=== PATIENT | male | born 1950 | race Hispanic/Latino ===

== ENCOUNTER 2017-03-19 11:47 | Day surgery (SDC) | payer MEDICARE ==
[2017-03-17 11:58] VITALS: BMI 26.6
[2017-03-19] MEDS ORDERED: Lidocaine 1% Inj (20ml) ONE (13:09)
[2017-03-19] MEDS ORDERED: Absorbable Gelatin Sponge Size 12-7 ONE (13:10)
[2017-03-19] MEDS ORDERED: Midazolam 2 MG/2 ML VIAL ONE ×2 (13:11→13:18)
--- NOTE | 2017-03-19 13:25 | CP.SDSHP ---
Same Day Surgery H & P - History Proposed Procedure: US guided liver biopsy Pre-Op Diagnosis: Hemachromatosis - Allergies Allergies: Allergies No Known Allergies Allergy (Verified 01/16/16 10:48) - Physical Exam Vital Signs: Vital Signs 03/19/17 03/19/17 03/19/17 12:06 12:08 13:19 Temperature 97.5 F L 98.0 F Pulse Rate 66 69 Respiratory 18 20 18 Rate Blood Pressure 139/75 132/71 O2 Sat by Pulse 97 100 Oximetry Mental Status: Alert & Oriented x3 Neuro: WNL Heart: WNL - Impression Impression: Pt possible fatty liver referred for liver biopsy. Plan US guided liver biopsy. Pt. Evaluated Today:Candidate for Anesthesia & Procedure: Yes (ASA 1 Malampati 2) - Date & Time Date: 03/19/17 Time: 13:00 Short Stay Discharge - Short Stay Discharge Admitting Diagnosis/Reason for Visit: ELEVATED LFT, FATTY LIVER/R94.5/K76.0 Disposition: HOME/ ROUTINE Referrals: Sadi Triana MD [Primary Care Provider] -
--- NOTE | 2017-03-19 13:25 | CP.SDSHP ---
Same Day Surgery H & P - Allergies Allergies: Allergies No Known Allergies Allergy (Verified 01/16/16 10:48) - Physical Exam Vital Signs: Vital Signs 03/19/17 03/19/17 03/19/17 12:06 12:08 13:19 Temperature 97.5 F L 98.0 F Pulse Rate 66 69 Respiratory 18 20 18 Rate Blood Pressure 139/75 132/71 O2 Sat by Pulse 97 100 Oximetry Short Stay Discharge - Short Stay Discharge Admitting Diagnosis/Reason for Visit: ELEVATED LFT, FATTY LIVER/R94.5/K76.0 Referrals: Sadi Triana MD [Primary Care Provider] -
--- NOTE | 2017-03-19 13:27 | PCM.SURG1 ---
Surgeon's Initial Post Op Note - Surgeon's Notes Surgeon: Arturo Mendez MD Roving Marker: None Type of Anesthesia: IV Sedation Pre-Operative Diagnosis: Fatty liver Operative Findings: US showed unremarkable left hepatic lobe. Post-Operative Diagnosis: Fatty liver Operation Performed: US guided left liver biopsy. Three 18-g core specimen obtained. Biopsy tract embolized with gel foam. Specimen/Specimens Removed: 18 g x 3 Estimated Blood Loss: EBL {In ML}: 0 Blood Products Given: N/A Drains Used: No Drains Post-Op Condition: Good Date of Surgery/Procedure: 03/19/17 Time of Surgery/Procedure: 13:20
[2017-03-19] MEDS ORDERED: Lactated Ringer's 1,000 ML IV ONE (14:00)
[2017-03-19 14:05] VITALS: RESP 18
[2017-03-19 15:21] VITALS: BP 128/85; TEMP 97.7; O2SAT 98
[2017-03-20 13:41] VITALS: PULSE 61
== END 2017-03-19 15:29 | disposition home or self-care (01) ==
LOC: H.OPSURG 11:47
PROVIDERS: ATTEND Internal Medicine Gastroenterology
DX: K76.0 Fatty (change of) liver, not elsewhere classified (principal); K21.9 Gastro-esophageal reflux disease without esophagitis
CPT/HCPCS: 47000; 88307; J2250; J3010; J7120

== ENCOUNTER 2017-04-13 12:52 | Inpatient (IN) | payer MEDICARE ==
[2017-04-13 12:53] VITALS: BMI 26.6
[2017-04-13 13:00] VITALS: O2SAT 99
--- NOTE | 2017-04-13 13:58 | ED PDOC ---
HPI: Psych/Substance Abuse Time Seen by Provider: 04/13/17 13:07 Chief Complaint (Nursing): Psychiatric Evaluation Chief Complaint (Provider): Crisis eval History Per: Patient Additional Complaint(s): [place] [facility] [place] pt physician, pt c/o suicidal ideations with plan to cut wrist with scalpel. Pt does not want to answer any further questions and is praying. Pt denies any PMH or Allergies ot medications Past Medical History Reviewed: Historical Data, Nursing Documentation, Vital Signs, Unable To Obtain Vital Signs: Last Vital Signs Temp 98.1 F 04/13/17 12:57 Pulse 90 04/13/17 12:57 Resp 16 04/13/17 12:57 BP 194/109 H 04/13/17 12:57 Pulse Ox 99 04/13/17 12:57 - Medical History PMH: Back Problems, Gastritis Denies: Chronic Kidney Disease - Surgical History Surgical History: No Surg Hx - Family History Family History: States: Unknown Family Hx - Immunization History Hx Tetanus Toxoid Vaccination: No Hx Influenza Vaccination: No Hx Pneumococcal Vaccination: No - Home Medications Home Medications: Ambulatory Orders Medication Instructions Recorded traMADol [Ultram] 50 mg PO TID PRN 01/16/16 Atorvastatin [Lipitor] 20 mg PO HS 04/13/17 Loratadine [Claritin] 10 mg PO DAILY 04/13/17 - Allergies Allergies/Adverse Reactions: Allergies Allergy/AdvReac Type Severity Reaction Status Date / Time No Known Allergies Allergy Verified 01/16/16 10:48 Review of Systems ROS Statement: Except As Marked, All Systems Reviewed And Found Negative Physical Exam - Reviewed Nursing Documentation Reviewed: Yes Vital Signs Reviewed: Yes - Physical Exam Appears: Positive for: Well, Non-toxic, No Acute Distress Head Exam: Positive for: ATRAUMATIC, NORMAL INSPECTION, NORMOCEPHALIC Skin: Positive for: Normal Color, Warm, DRY Eye Exam: Positive for: EOMI, Normal appearance, PERRL ENT: Positive for: Normal ENT Inspection Neck: Positive for: Normal, Painless ROM Cardiovascular/Chest: Positive for: Regular Rate, Rhythm Respiratory: Positive for: CNT, Normal Breath Sounds Gastrointestinal/Abdominal: Positive for: Normal Exam, Bowel Sounds, Soft Back: Positive for: Normal Inspection Extremity: Positive for: Normal ROM Neurologic/Psych: Positive for: Alert, Oriented - Laboratory Results Result Diagrams: 04/13/17 14:30 04/13/17 14:30 - ECG O2 Sat by Pulse Oximetry: 99 Medical Decision Making Medical Decision Making: Diagnostics ordered EKG interpreted and cleared by ED MD NSR at 72 bpm, no acute ST changes, as read by IVA CXR: NAD, as read by IVA Labs resulted and reviewed with Pt. Neelam 5.3, Miguel Marks ordered Pt medically cleared, underwent crisis eval. See notes. Stable for admission to [facility] repeat BP: 158/88 Disposition - Clinical Impression Clinical Impression: Schizophrenia - Patient ED Disposition Is Patient to be Admitted: Yes - Disposition Disposition Time: 19:31 Condition: STABLE Forms: [facility] ([place]) - POA Present On Arrival: None
[2017-04-13 14:40] LABS: BASO % 0.5 % (0.0-2.0); EOS % 0.4 % (0.0-4.0); HEMATOCRIT 47.8 % (35.0-51.0); LYMPH # 1.8 K/uL (1.0-4.3); LYMPH % 18.3 % (20.0-40.0); MEAN CELL VOLUME 93.3 fl (80.0-94.0); MEAN CORPUSCULAR HEMOGLOBIN 31.9 pg (27.0-31.0); MEAN CORPUSCULAR HGB CONC 34.2 g/dL (33.0-37.0); MEAN PLATELET VOLUME 8.1 fl (7.2-11.7); MONO # 0.8 K/uL (0.0-0.8); MONO % 8.3 % (0.0-10.0); NEUT # 7.2 K/uL (1.8-7.0); NEUT % 72.5 % (50.0-75.0); RED CELL DISTRIBUTION WIDTH 13.3 % (11.5-14.5); WHITE BLOOD COUNT 9.9 K/uL (4.8-10.8)
[2017-04-13 14:51] LABS: ALB/GLOB RATIO 1.5 (1.0-2.1); ALCOHOL SERUM < 10 mg/dl (0-10); ALKALINE PHOSPHATASE 82 U/L (38-126); ALT/SGPT 77 U/L (21-72); AST/SGOT 74 U/L (17-59); BILIRUBIN,TOTAL 1.7 mg/dl (0.2-1.3); BLOOD UREA NITROGEN 14 mg/dl (9-20); CALCIUM 9.5 mg/dL (8.4-10.2); CARBON DIOXIDE 21 mmol/L (22-30); CHLORIDE 103 mmol/L (98-107); GFR AFRICAN-AMERICAN > 60; GLUCOSE,RANDOM 108 mg/dL (75-110); SODIUM 141 mmol/l (132-148)
[2017-04-13 14:58] LABS: POTASSIUM 3.2 MMOL/L (3.6-5.0)
--- NOTE | 2017-04-13 15:36 | RAD ---
PROCEDURE: CHEST RADIOGRAPH, 1 VIEW HISTORY: med screening COMPARISON: None available. FINDINGS: LUNGS: Clear. PLEURA: No pneumothorax or pleural fluid seen. CARDIOVASCULAR: No radiographic findings to suggest acute or significant cardiovascular disease. OSSEOUS STRUCTURES: No significant abnormalities. VISUALIZED UPPER ABDOMEN: Normal. OTHER FINDINGS: None. IMPRESSION: No active disease.
[2017-04-13] MEDS ORDERED: Potassium Chloride 20 mEq ER Tab PO ONE ×3 (16:44→20:10)
[2017-04-13 17:19] LABS: RBC URINE 4 /hpf (0-3); URINE BILIRUBIN NEGATIVE (NEGATIVE); URINE BLOOD NEGATIVE (NEGATIVE); URINE COLOR AMBER (YELLOW); URINE GLUCOSE (UA) NEG (Normal); URINE KETONE 80 mg/dL (NEGATIVE); URINE LEUKOCYTE ESTERASE NEG Leu/uL (Negative); URINE PROTEIN 100 mg/dL (NEGATIVE); URINE UROBILINOGEN 0.2-1.0 mg/dL (0.2-1.0); WBC URINE 4 /hpf (0-5)
[2017-04-13] MEDS ORDERED: Magnesium Hydroxide Susp 30 ml UD PO PRN (20:34)
[2017-04-13] MEDS ORDERED: Alum-Mag Hydrox-Simethicone Susp (30 mL) PO PRN (20:34)
[2017-04-13] MEDS ORDERED: DiphenhydrAMINE 50 mg/ml Inj IM PRN (20:34)
--- NOTE | 2017-04-13 21:14 | PCM.BM ---
<TenishaMadhutoya Peñaloza - Last Filed: 04/13/17 21:12> Treatment Plan Problems - Problems identified on initial assessmt Delusions Date Initiated: 04/13/17 Time Initiated: 21:13 Assessment reference: NA Status: Active Thought process Date Initiated: 04/13/17 Time Initiated: 21:14 Assessment reference: NA Status: Active Ineffective coping Date Initiated: 04/13/17 Time Initiated: 21:14 Assessment reference: NA Status: Active Treatment assets and liabiliti Patient Assests: ADL independent, negotiates basic needs Patient Liabilities: medical problems, unable to read/write, language/speech - Milieu Protocol Maintain good personal hygiene: daily Remind patient to perform daily oral care , daily Assist patient to perform ADL's, every shift Encourage regular showers Maintain personal safety: daily Educate patient to report safety concerns to staff, every shift Monitor environment for contraband/sharps Medication safety: Monitor for expected outcome, potential side effects: daily, Assess barriers to learning: daily, Assess readiness for medication education: every shift <John Anthony - Last Filed: 04/15/17 10:02> Family Contact Family contact: Patient agrees to contact, Family has been contacted by patient , Telephone contact initiated by staff Family contact name: Ángel Das ([phone]) Brother Family contacted how many times per week?: 6 Family contact comment: Asset Administrator and pt's son spoke briefly, but son seemed to not understand the severity of pt's current condition. Pt lacks any insight into his current condition and this was imparted to son. - Outside Agency Agency 1 Care involvment: Following patient during stay Agency contact name: [facility] ([phone]) Agency contact number: Pt was screened by [facility] [place] committ[place] and accepted. Pt is pending transfer after additional medical tests are conducted. - Goals for Treatment Patient goals for treatment: None noted as pt does not think he needs to be hospitalized in a psychiatric unit. Discharge/Continuing Care - Discharge Discharge Criteria: Other Discharge to:: Other - Additional Comments 04/15/17 10:01 Pt was screened and accepted to [facility] [place] and is awaiting transport to their psychiatric ED once additional medical tests are conducted and pt is medically cleared for transport by [facility] staff. - Treatment Team Participation Discussed with Family/SO: Yes Was Patient/Family/SO present at Treatment Team Meeting: Yes
--- NOTE | 2017-04-14 08:50 | CARD ---
APPROVED REPORT EKG Measurement Heart [id number] <Conclusion> Normal sinus rhythm Nonspecific ST abnormality Abnormal ECG
--- NOTE | 2017-04-14 10:26 | PCM.PSYCH ---
Initial Psychiatric Evaluation - Initial Psychiatric Evaluation Type of Admission: Voluntary Legal Status: Capacity Chief Complaint (in patient's own words): i want to know why i am here Patient's Reaction to Hospitalization: signed 48 hour notice History of Present Illness and Precipitating Events: 66 yo cymro male who is denying any previous psychiatric history. pt's son apparently called mobile outreach as he was concerned with the patient's recent behaviors. apparently pt has been working on a new book and has become quite bizarre and has been making vague suicidal statements. pt has become paranoid and there are reports that patient was reporting hearing voices. he is a poor historian currently. he is intrusive and continues to ask this advertising copywriter and staff for personal information and is yelling that "a mistake was made" and demanding to be discharged immediately. pt becomes loud and agitated. he is able to be verbally redirected by staff. pt speaking to this advertising copywriter in japanese and continues to try and ask questions about this writers ancestors. he becomes tagential and continues to shift from topic to topic. he insists that his 3 month (at times he says 5 month) old daughter is coming from [place] today. he states his son is getting today. he demands to be discharged and has signed a 48 hour notice. Current Medications: Active Medications Generic Name Dose Route Start Last Admin Trade Name Carmen PRN Reason Stop Dose Admin Acetaminophen 650 mg 04/13/17 20:34 Tylenol 325mg Tab PO Q4 PRN Pain, moderate (4-7) Al Hydrox/Mg Hydrox/Simethicone 30 ml 04/13/17 20:34 Maalox Plus 30 Ml PO Q4 PRN Dyspepsia Atorvastatin Calcium 20 mg 04/13/17 22:00 04/13/17 22:08 Lipitor PO 20 mg HS ANANDA Administration Clonidine HCl 0.2 mg 04/13/17 21:00 04/14/17 08:49 Catapres PO 0.2 mg BID ANANDA Administration Diphenhydramine HCl 50 mg 04/13/17 20:34 Benadryl IM Q6 PRN Extrapyramidal S/S Unable PO Diphenhydramine HCl 50 mg 04/13/17 20:39 04/13/17 22:08 Benadryl PO 50 mg HS PRN Administration Sleep Haloperidol 5 mg 04/13/17 20:34 Haldol PO Q4 PRN Agitation Haloperidol Lactate 5 mg 04/13/17 20:34 Haldol IM Q4 PRN Agitation, Unable to Take PO Lorazepam 2 mg 04/13/17 20:34 Ativan IM Q4 PRN Anxiety/Agitation,Unable PO Lorazepam 1 mg 04/13/17 20:34 04/13/17 22:08 Ativan PO 1 mg Q4 PRN Administration Anxiety/Agitation Magnesium Hydroxide 30 ml 04/13/17 20:34 Milk Of Magnesia PO HS PRN Constipation Risperidone 0.5 mg 04/14/17 10:15 Risperdal M-Tab PO DAILY ANANDA Tramadol HCl 50 mg 04/13/17 20:57 Ultram PO TID PRN Pain, severe (8-10) Past Psychiatric History - Past Psychiatric History Previous Treatment History: Inpatient Prior Professional Help: states he was in a sanatorium in [place] in 1970 History of Abuse: poor historian History of ETOH/Drug Use: uds negative. History of Family Illness: unknown Pertinent Medical Hx (Current Medical&Sleep Prob, Allergies): Allergies Allergy/AdvReac Type Severity Reaction Status Date / Time No Known Allergies Allergy Verified 01/16/16 10:48 traMADol [Ultram] 50 mg PO TID PRN 01/16/16 Atorvastatin [Lipitor] 20 mg PO HS 04/13/17 Loratadine [Claritin] 10 mg PO DAILY 04/13/17 seasonal allergies, hypercholesterolemia Review of Systems - Psychiatric Psychiatric: As Per HPI, Auditory Hallucinations, Difficulty Concentrating, Hallucinations, Irritability, Mood Swings, Panic Attacks, Paranoia, Suicidal Ideation Mental Status Examination - Personal Presentation Personal Presentation: Looks stated age - Affect Affect: Broad - Motor Activity Motor Activity: Other (restless refuses to sit down) - Reliability in Providing Information Reliability in Providing Information: Poor, due to alteration in thoughts, Poor , due to altered mood - Speech Speech: Disorganized, Irrelevant, Tangential - Mood Mood: Other (angry) - Formal Thought Process Formal Thought Process: Hallucinations, Delusions, Paranoia, Loosening of associations, Flight of ideas, Circumstantial - Hallucinations/Delusions Delusions: Persecution - Obsessions/Compulsions Obsessions: No Compulsions: No - Cognitive Functions Orientation: Person, Place, Situation, Time Sensorium: Alert Attention/Concentration: Easily distracted Abstract Thinking: As evidence by abstract perception of proverbs Estimate of Intelligence: Above Average Judgement: Imparied, as evidence by: Lack of insight into illness Memory: Recent impaired, as evidenced by: Other (psychosis, karan) - Risk Risk: Suicidal (has made threats per report. he is denying suicidal thoughts), Diminished functioning - Strength & Assets Inventory Strength & Assets Inventory: Intelligence, Family support, Education, Life experience - Limitations Limitations: Living alone DSM 5 DX - DSM 5 DSM 5 Diagnosis: mood disorder unspecified r/o bipolar disorder manic with psychosis - Recommended/Plan of Treatment Treatment Recommendations and Plan of Treatment: admit to [facility] for safety and observation gather collateral information provide supportive therapy adjust medications- attempt to initiate risperdal to treat mood/psychosis- pt is not agreeing to medications at this time. screen for involuntary hospitalization at [facility] [place] as pt is grossly disorganized in his thoughts, behaviors and is making suicidal threats and lacks insight into his illness. will consult dr. souza to manage his medical needs Projected ELOS: 5-7 days Prognosis: guarded without intervention
[2017-04-14] MEDS: Risperidone M tab 0.5MG PO SCH ×3 (12:25→20:11)
--- NOTE | 2017-04-14 15:11 | CP.PCM.CON ---
<Lise Snyder - Last Filed: 04/14/17 15:39> History of Present Illness - History of Present Illness History of Present Illness: 66 y/o M with PMHx significant for HLD, Triple Cervical disc herniation, who was admitted in psychiatric unit for mood disorder unspecified and r/o bipolar disorder manic with psychosis. Patient reports elevated BP " once in a while when he gets emotional with his children". Patient denies chest pain, SOB, cough , fevers, chills, dizziness, headaches, abdominal pain, diarrheas or other complains at this evaluation. PMD: Dr. Triana Medications at home: Lipitor, Claritin, and Tramadol ( PRN) Review of Systems - Review of Systems All systems: reviewed and no additional remarkable complaints except (as per HPI ) Past Patient History - Past Medical History & Family History Past Medical History?: Yes - Past Social History Smoking Status: Never Smoked - CARDIAC Hx Cardiac Disorders: Yes - PULMONARY Hx Respiratory Disorders: No - NEUROLOGICAL Hx Neurological Disorder: No - HEENT Hx HEENT Problems: No - RENAL Hx Chronic Kidney Disease: No - ENDOCRINE/METABOLIC Hx Endocrine Disorders: No - HEMATOLOGICAL/ONCOLOGICAL Hx Blood Disorders: No - INTEGUMENTARY Hx Dermatological Problems: No - MUSCULOSKELETAL/RHEUMATOLOGICAL Hx Musculoskeletal Disorders: No - GASTROINTESTINAL Hx Gastritis: Yes - GENITOURINARY/GYNECOLOGICAL Hx Genitourinary Disorders: No - PSYCHIATRIC Hx Substance Use: No - SURGICAL HISTORY Hx Surgeries: No - ANESTHESIA Hx Anesthesia: No Hx Anesthesia Reactions: No Hx Malignant Hyperthermia: No Meds Allergies/Adverse Reactions: Allergies Allergy/AdvReac Type Severity Reaction Status Date / Time No Known Allergies Allergy Verified 01/16/16 10:48 - Medications Medications: Current Medications Acetaminophen (Tylenol 325mg Tab) 650 mg PO Q4 PRN PRN Reason: Pain, moderate (4-7) Al Hydrox/Mg Hydrox/Simethicone (Maalox Plus 30 Ml) 30 ml PO Q4 PRN PRN Reason: Dyspepsia Amlodipine Besylate (Norvasc) 5 mg PO DAILY [facility] Atorvastatin Calcium (Lipitor) 20 mg PO HS ANANDA Last Admin: 04/13/17 22:08 Dose: 20 mg Clonidine HCl (Catapres) 0.2 mg PO BID ANANDA Last Admin: 04/14/17 08:49 Dose: 0.2 mg Diphenhydramine HCl (Benadryl) 50 mg IM Q6 PRN PRN Reason: Extrapyramidal S/S Unable PO Diphenhydramine HCl (Benadryl) 50 mg PO HS PRN PRN Reason: Sleep Last Admin: 04/13/17 22:08 Dose: 50 mg Haloperidol (Haldol) 5 mg PO Q4 PRN PRN Reason: Agitation Haloperidol Lactate (Haldol) 5 mg IM Q4 PRN PRN Reason: Agitation, Unable to Take PO Lorazepam (Ativan) 2 mg IM Q4 PRN PRN Reason: Anxiety/Agitation,Unable PO Lorazepam (Ativan) 1 mg PO Q4 PRN PRN Reason: Anxiety/Agitation Last Admin: 04/13/17 22:08 Dose: 1 mg Magnesium Hydroxide (Milk Of Magnesia) 30 ml PO HS PRN PRN Reason: Constipation Risperidone (Risperdal M-Tab) 0.5 mg PO DAILY ANANDA Last Admin: 04/14/17 12:25 Dose: 0.5 mg Tramadol HCl (Ultram) 50 mg PO TID PRN PRN Reason: Pain, severe (8-10) Physical Exam - Constitutional Appears: No Acute Distress - ENT Exam ENT Exam: Mucous Membranes Moist - Respiratory Exam Respiratory Exam: NORMAL BREATHING PATTERN - Cardiovascular Exam Cardiovascular Exam: REGULAR RHYTHM, +S1, +S2 - GI/Abdominal Exam GI & Abdominal Exam: Normal Bowel Sounds, Soft. absent: Tenderness - Extremities Exam Extremities exam: Positive for: normal inspection. Negative for: calf tenderness, pedal edema - Neurological Exam Neurological exam: Alert, Oriented x3 - Skin Skin Exam: Dry, Intact, Normal Color Results - Vital Signs Recent Vital Signs: Last Vital Signs Temp 96.9 F L 04/14/17 09:00 Pulse 60 04/14/17 11:35 Resp 18 04/14/17 11:35 BP 169/80 H 04/14/17 11:35 Pulse Ox 99 04/13/17 19:36 - Labs Result Diagrams: 04/13/17 14:30 04/13/17 14:30 Assessment & Plan - Assessment and Plan (Free Text) Assessment: 66 y/o M with PMHx significant for HLD, Triple Cervical disc herniation, who was admitted in psychiatric unit for mood disorder unspecified and r/o bipolar disorder manic with psychosis. Plan: Hypertension Uncontrolled, BP on admission 194/109 mmhg Patient is not taking any BP medications Asymptomatic c/w started Clonidine 0.2 mg PO BID by hospitalist, Dr. Shankar start Amlodipine 5 mg PO GFR >60, BUN/Cr :wnl f/u BP Hypokalemia mild noted on admission K+ 3.2 Potassium 20 meq x 2 given at ER f/u CMP Elevated LFts Asymptomatic consider work up as outpatient HLD c/w home atorvastatin 20 mg PO HS Mood disorder unspecified r/o bipolar disorder manic with psychosis. management as per psych DVT prophylaxis ambulating - Date & Time Date: 04/14/17 Time: 14:00 <Sadi Triana - Last Filed: 04/15/17 06:55> Meds - Medications Medications: Current Medications Acetaminophen (Tylenol 325mg Tab) 650 mg PO Q4 PRN PRN Reason: Pain, moderate (4-7) Al Hydrox/Mg Hydrox/Simethicone (Maalox Plus 30 Ml) 30 ml PO Q4 PRN PRN Reason: Dyspepsia Amlodipine Besylate (Norvasc) 10 mg PO DAILY ANANDA Atorvastatin Calcium (Lipitor) 20 mg PO HS ANANDA Last Admin: 04/14/17 22:00 Dose: Not Given Clonidine HCl (Catapres) 0.2 mg PO BID ANANDA Last Admin: 04/14/17 20:06 Dose: 0.2 mg Diphenhydramine HCl (Benadryl) 50 mg IM Q6 PRN PRN Reason: Extrapyramidal S/S Unable PO Diphenhydramine HCl (Benadryl) 50 mg PO HS PRN PRN Reason: Sleep Last Admin: 04/13/17 22:08 Dose: 50 mg Haloperidol (Haldol) 5 mg PO Q4 PRN PRN Reason: Agitation Haloperidol Lactate (Haldol) 5 mg IM Q4 PRN PRN Reason: Agitation, Unable to Take PO Lorazepam (Ativan) 2 mg IM Q4 PRN PRN Reason: Anxiety/Agitation,Unable PO Lorazepam (Ativan) 1 mg PO Q4 PRN PRN Reason: Anxiety/Agitation Last Admin: 04/14/17 20:14 Dose: 1 mg Magnesium Hydroxide (Milk Of Magnesia) 30 ml PO HS PRN PRN Reason: Constipation Potassium Chloride (K-Dur 20 Meq Er Tab) 40 meq PO ONCE ONE Stop: 04/15/17 09:01 Risperidone (Risperdal M-Tab) 0.5 mg PO DAILY ANANDA Last Admin: 04/14/17 20:11 Dose: 0.5 mg Tramadol HCl (Ultram) 50 mg PO TID PRN PRN Reason: Pain, severe (8-10) Results - Vital Signs Recent Vital Signs: Last Vital Signs Temp 96.9 F L 04/14/17 17:00 Pulse 84 04/14/17 20:07 Resp 18 04/14/17 17:00 BP 186/110 H 04/14/17 20:07 Pulse Ox 99 04/13/17 19:36 - Labs Result Diagrams: 04/13/17 14:30 04/14/17 20:40 Labs: Laboratory Results - last 24 hr 04/14/17 04/14/17 20:40 21:30 Sodium 134 Potassium 3.3 L Chloride 97 L Carbon Dioxide 22 Anion Gap 18 BUN 11 Creatinine 0.6 L Est GFR ( Amer) > 60 Est GFR (Non-Af Amer) > 60 Random Glucose 105 Calcium 9.3 Total Bilirubin 1.9 H AST 74 H ALT 80 H Alkaline Phosphatase 80 Total Protein 7.7 Albumin 4.7 Globulin 3.1 Albumin/Globulin Ratio 1.5 Urine Color Straw Urine Clarity Clear Urine pH 6.0 Ur Specific [place] 1.005 Urine Protein Negative Urine Glucose (UA) Neg Urine Ketones 20 Urine Blood Small Urine Nitrate Negative Urine Bilirubin Negative Urine Urobilinogen 0.2-1.0 Ur Leukocyte Esterase Neg Urine RBC (Auto) 12 H Urine Microscopic WBC 3 Attending/Attestation - Attestation I have personally seen and examined this patient.: Yes I have fully participated in the care of the patient.: Yes I have reviewed all pertinent clinical information: Yes
[2017-04-14 21:35] LABS: ALB/GLOB RATIO 1.5 (1.0-2.1); ALKALINE PHOSPHATASE 80 U/L (38-126); ALT/SGPT 80 U/L (21-72); AST/SGOT 74 U/L (17-59); BILIRUBIN,TOTAL 1.9 mg/dl (0.2-1.3); BLOOD UREA NITROGEN 11 mg/dl (9-20); CALCIUM 9.3 mg/dL (8.4-10.2); CARBON DIOXIDE 22 mmol/L (22-30); CHLORIDE 97 mmol/L (98-107); GFR AFRICAN-AMERICAN > 60; GLUCOSE,RANDOM 105 mg/dL (75-110); SODIUM 134 mmol/l (132-148); TOTAL PROTEIN 7.7 G/DL (6.3-8.2)
[2017-04-14 21:41] LABS: POTASSIUM 3.3 MMOL/L (3.6-5.0)
[2017-04-14] MEDS ORDERED: Enoxaparin 40 mg Syringe SC SCH (22:00)
[2017-04-14 22:04] LABS: URINE BILIRUBIN NEGATIVE (NEGATIVE); URINE BLOOD SMALL (NEGATIVE); URINE COLOR STRAW (YELLOW); URINE GLUCOSE (UA) NEG (Normal); URINE KETONE 20 mg/dL (NEGATIVE); URINE LEUKOCYTE ESTERASE NEG Leu/uL (Negative); URINE PROTEIN NEGATIVE (NEGATIVE); URINE UROBILINOGEN 0.2-1.0 mg/dL (0.2-1.0)
[2017-04-14 22:08] LABS: RBC URINE 12 /hpf (0-3); WBC URINE 3 /hpf (0-5)
[2017-04-15] MEDS: Risperidone M tab 0.5MG PO SCH (08:36)
--- NOTE | 2017-04-15 08:54 | CP.PCM.PN ---
<Lise Snyder - Last Filed: 04/15/17 08:49> Subjective - Date & Time of Evaluation Date of Evaluation: 04/15/17 Time of Evaluation: 07:10 - Subjective Subjective: Patient was seen and examined with attending in the Psychiatric unit this morning. Patient alert, awake, oriented X 3. Patient with flight of ideas and ideas of grandiosity. Patient has been refusing blood pressure medications since yesterday. Afebrile, but with elevated blood pressure, rest of VS stable WNL Case discussed with attending, patient's PCP, Dr. Triana, and patient is medically cleared to be transfer to [facility] [place], on PO BP meds to manage elevated BP. F /U with PMD as outpatient after stabilization of current Psych condition. Objective - Vital Signs/Intake and Output Vital Signs (last 24 hours): Temp Pulse Resp BP Pulse Ox 96.9 F L 78 18 165/98 H 99 04/14/17 17:00 04/15/17 08:35 04/14/17 17:00 04/15/17 08:35 04/13/17 19:36 - Medications Medications: Current Medications Acetaminophen (Tylenol 325mg Tab) 650 mg PO Q4 PRN PRN Reason: Pain, moderate (4-7) Al Hydrox/Mg Hydrox/Simethicone (Maalox Plus 30 Ml) 30 ml PO Q4 PRN PRN Reason: Dyspepsia Amlodipine Besylate (Norvasc) 10 mg PO DAILY [facility] Last Admin: 04/15/17 08:35 Dose: 10 mg Atorvastatin Calcium (Lipitor) 20 mg PO HS [facility] Last Admin: 04/14/17 22:00 Dose: Not Given Clonidine HCl (Catapres) 0.2 mg PO BID [facility] Last Admin: 04/15/17 08:33 Dose: 0.2 mg Diphenhydramine HCl (Benadryl) 50 mg IM Q6 PRN PRN Reason: Extrapyramidal S/S Unable PO Diphenhydramine HCl (Benadryl) 50 mg PO HS PRN PRN Reason: Sleep Last Admin: 04/13/17 22:08 Dose: 50 mg Haloperidol (Haldol) 5 mg PO Q4 PRN PRN Reason: Agitation Haloperidol Lactate (Haldol) 5 mg IM Q4 PRN PRN Reason: Agitation, Unable to Take PO Lorazepam (Ativan) 2 mg IM Q4 PRN PRN Reason: Anxiety/Agitation,Unable PO Lorazepam (Ativan) 1 mg PO Q4 PRN PRN Reason: Anxiety/Agitation Last Admin: 04/14/17 20:14 Dose: 1 mg Magnesium Hydroxide (Milk Of Magnesia) 30 ml PO HS PRN PRN Reason: Constipation Potassium Chloride (K-Dur 20 Meq Er Tab) 40 meq PO ONCE ONE Stop: 04/15/17 09:01 Last Admin: 04/15/17 08:38 Dose: 40 meq Risperidone (Risperdal M-Tab) 0.5 mg PO DAILY [facility] Last Admin: 04/15/17 08:36 Dose: 0.5 mg Tramadol HCl (Ultram) 50 mg PO TID PRN PRN Reason: Pain, severe (8-10) - Labs Labs: 04/14/17 20:40 - Constitutional Appears: Non-toxic - ENT Exam ENT Exam: Mucous Membranes Moist - Respiratory Exam Respiratory Exam: Clear to Ausculation Bilateral, NORMAL BREATHING PATTERN - Cardiovascular Exam Cardiovascular Exam: REGULAR RHYTHM, +S1, +S2 - GI/Abdominal Exam GI & Abdominal Exam: Soft, Normal Bowel Sounds. absent: Distended, Guarding, Rigid, Tenderness - Extremities Exam Extremities Exam: Normal Inspection. absent: Calf Tenderness, Pedal Edema - Neurological Exam Neurological Exam: Alert, Awake, Oriented x3 - Skin Skin Exam: Dry, Intact, Normal Color Assessment and Plan - Assessment and Plan (Free Text) Assessment: 66 y/o M with PMHx significant for HLD, Triple Cervical disc herniation, who was admitted in psychiatric unit for mood disorder unspecified and r/o bipolar disorder manic with psychosis. Plan: Hypertension Uncontrolled, still elevated Patient denies a previous diagnosis of HTN, and was not taking any BP medications at home. Elevated BP most likely 2/2 anxiety, no previous history of HTN . Patient has been refusing BP medications in the hospital due to Paranoid behavior as per Psych nurse. Denies any symptoms at this evaluation discontinue Clonidine 0.2 mg start Lisinopril 10 mg PO daily increased Amlodipine from 5 to 10 mg PO daily GFR >60, BUN/Cr :wnl f/u BP Hypokalemia mild patient refusing medications noted on admission K+ 3.3 Potassium 40 meq once f/u K+ Hematuria mild, asymptomatic 12 RBC on UA on 04/14/17 Negative nitrate, leukocyte esterase, normal WBC repeat UA, if persistent consider work up as outpatient Elevated LFts Asymptomatic patient had been f/u with GI as outpatient c/w GI f/u as outpatient HLD c/w home atorvastatin 20 mg PO HS Mood disorder unspecified f/u Head CT r/o bipolar disorder manic with psychosis. management as per psych DVT prophylaxis ambulating <Sadi Triana - Last Filed: 04/17/17 06:53> Objective - Vital Signs/Intake and Output Vital Signs (last 24 hours): Temp Pulse Resp BP Pulse Ox 97.8 F 67 18 120/78 99 04/16/17 16:36 04/16/17 16:36 04/16/17 16:36 04/16/17 16:36 04/13/17 19:36 - Labs Labs: 04/15/17 19:50 04/15/17 19:50 Attending/Attestation - Attestation I have personally seen and examined this patient.: Yes I have fully participated in the care of the patient.: Yes I have reviewed all pertinent clinical information, including history, physical exam and plan: Yes
[2017-04-15] MEDS ORDERED: Potassium Chloride 20 mEq ER Tab PO ONE (09:00)
--- NOTE | 2017-04-15 10:01 | CT ---
PROCEDURE: CT HEAD WITHOUT CONTRAST. HISTORY: mood disorder/psychosis COMPARISON: None available. TECHNIQUE: Axial computed tomography images were obtained through the head/brain without intravenous contrast. Radiation dose: Total exam DLP = 892 mGy-cm. This CT exam was performed using one or more of the following dose reduction techniques: Automated exposure control, adjustment of the mA and/or kV according to patient size, and/or use of iterative reconstruction technique. FINDINGS: HEMORRHAGE: No intracranial hemorrhage. BRAIN: No mass effect or edema. No atrophy or chronic microvascular ischemic changes. VENTRICLES: Unremarkable. No hydrocephalus. CALVARIUM: Unremarkable. PARANASAL SINUSES: Ethmoid and maxillary sinusitis MASTOID AIR CELLS: Unremarkable as visualized. No inflammatory changes. OTHER FINDINGS: None. IMPRESSION: No acute intracranial findings. Sinusitis
--- NOTE | 2017-04-15 10:44 | PCM.PYCHPN ---
Psychiatric Progress Note - Psychiatric Progress Note Patient seen today, length of contact: discussed with team Patient Chief Complaint: can i take my trash with me? Problems Identified/Issues Discussed: pt came to treatment team carrying the trash bag from his room. he states his father told him to always take out his own trash. he is given opportunity to express his understanding of why he is in the hospital. he is unable to organize his thoughts. his speech digresses into providing excessive details, changing topic and going on about "don't ever allow your loved ones to drink or look at the can of coke or pepsi...." he does relate that he was trying to finish a book for his son as a wedding gift and his sleep did suffer and he started only needed 3 hours of sleep a night. he does not feel there is any problems with his thoughts/behaviors. he refused to sign treatment plan. pt was seen by [facility] [place] and accepted. he has been made aware of this, but continues to ask to leave and states he was tricked into staying here. Medical Problems: high cholesterol, inc. lft's seen by dr. souza Diagnostic Results: head ct, no acute intracranial findings DSM 5 Symptoms Update: karan Medication Change: Yes (haldol and ativan started. dc risperdal) Medical Record Reviewed: Yes Consults ordered or reviewed: serjio souza seeing pt and working on medical clearance. Mental Status Examination - Cognitive Function Orientation: Person, Place, Situation, Time Memory: Intact Attention: Poor Concentration: Poor Association: Loose Fund of Knowledge: WNL Decription of patient's judgement and insights: poor i/j - Mood Mood: Other (angry) - Affect Affect: Broad - Speech Speech: Loud, Pressured - Formal Thought Process Formal Thought Process: Hallucinations, Delusions, Paranoia, Loosening of associations, Flight of ideas, Circumstantial Psychotic Thoughts and Behaviors: grossly disturbed thoughts - Suicidal Ideation Suicidal Ideation: No - Homicidal Ideation Homicidal Ideation: No Goal/Treatment Plan - Goal/Treatment Plan Need for Continued Stay: Remain at risks for inpatient hospitalization, Discharge may exacerbated symptoms, Severe functional impairment Progress Toward Problem(s) and Goals/Treatment Plan: bipolar disorder, karan with psychosis will dc risperdal and start haldol/ativan to manage mood and psychosis dr. souza following pt and working on medical clearance continue to encourage pt to participate in treatment awaiting bed at [facility] [place] Estimated Date of D/C: 04/16/17
[2017-04-15 15:05] LABS: RBC URINE < 1 /hpf (0-3); URINE BILIRUBIN NEGATIVE (NEGATIVE); URINE BLOOD NEGATIVE (NEGATIVE); URINE COLOR COLORLESS (YELLOW); URINE GLUCOSE (UA) NEG (Normal); URINE KETONE NEGATIVE (NEGATIVE); URINE LEUKOCYTE ESTERASE NEG Leu/uL (Negative); URINE PROTEIN NEGATIVE (NEGATIVE); URINE UROBILINOGEN 0.2-1.0 mg/dL (0.2-1.0)
[2017-04-15] MEDS ORDERED: Risperidone M tab 0.5MG PO SCH (17:00)
[2017-04-15 20:16] LABS: MEAN CELL VOLUME 93.1 fl (80.0-94.0); MEAN CORPUSCULAR HEMOGLOBIN 31.7 pg (27.0-31.0); MEAN CORPUSCULAR HGB CONC 34.1 g/dL (33.0-37.0)
[2017-04-15 20:19] LABS: CHOLESTEROL 110 mg/dL (0-199)
[2017-04-15 20:20] LABS: ALB/GLOB RATIO 1.4 (1.0-2.1); ALKALINE PHOSPHATASE 76 U/L (38-126); ALT/SGPT 80 U/L (21-72); AST/SGOT 68 U/L (17-59); BILIRUBIN,TOTAL 1.3 mg/dl (0.2-1.3); BLOOD UREA NITROGEN 13 mg/dl (9-20); CALCIUM 9.3 mg/dL (8.4-10.2); CARBON DIOXIDE 26 mmol/L (22-30); CHLORIDE 96 mmol/L (98-107); GFR AFRICAN-AMERICAN > 60; GLUCOSE,RANDOM 123 mg/dL (75-110); POTASSIUM 3.8 MMOL/L (3.6-5.0); SODIUM 136 mmol/l (132-148); TOTAL PROTEIN 7.9 G/DL (6.3-8.2)
[2017-04-16 09:02] VITALS: RESP 18
--- NOTE | 2017-04-16 09:27 | PCM.PYCHPN ---
Psychiatric Progress Note - Psychiatric Progress Note Patient seen today, length of contact: discussed with team Patient Chief Complaint: i want to apologize Problems Identified/Issues Discussed: pt refusing medications. he was agitated at night and ripped the soap dispenser off the wall. he is loud, intrusive, disorganized. Medical Problems: high cholesterol, inc. lft's seen by dr. souza Diagnostic Results: head ct, no acute intracranial findings Medication Change: No (refusing medications) Medical Record Reviewed: Yes Mental Status Examination - Cognitive Function Orientation: Person, Place, Situation, Time Memory: Intact Attention: Poor Concentration: Poor Association: Loose Fund of Knowledge: WNL Decription of patient's judgement and insights: poor i/j - Mood Mood: Other (angry/labile mood) - Affect Affect: Broad - Speech Speech: Loud, Pressured - Formal Thought Process Formal Thought Process: Hallucinations, Delusions, Paranoia, Loosening of associations, Flight of ideas, Circumstantial Psychotic Thoughts and Behaviors: grossly disturbed thoughts - Suicidal Ideation Suicidal Ideation: No - Homicidal Ideation Homicidal Ideation: No Goal/Treatment Plan - Goal/Treatment Plan Need for Continued Stay: Remain at risks for inpatient hospitalization, Discharge may exacerbated symptoms, Severe functional impairment Progress Toward Problem(s) and Goals/Treatment Plan: bipolar disorder, karan with psychosis continue to offer haldol, ativan continue current treatment awaiting bed at [facility] Estimated Date of D/C: 04/16/17
[2017-04-16] MEDS ORDERED: Bisacodyl 5mg EC Tab PO PRN (09:54)
[2017-04-16 16:37] VITALS: BP 120/78; PULSE 67; TEMP 97.8
--- NOTE | 2017-04-16 17:30 | CP.PCM.PN ---
<Lise Snyder - Last Filed: 04/16/17 17:27> Subjective - Date & Time of Evaluation Date of Evaluation: 04/16/17 Time of Evaluation: 13:00 - Subjective Subjective: Patient was seen and examined in Psych unit. Patient alert, awake, oriented X 3. Afebrile, and BP controlled with PO medications. Objective - Vital Signs/Intake and Output Vital Signs (last 24 hours): Temp Pulse Resp BP Pulse Ox 97.8 F 67 18 120/78 99 04/16/17 16:36 04/16/17 16:36 04/16/17 16:36 04/16/17 16:36 04/13/17 19:36 - Medications Medications: Current Medications Acetaminophen (Tylenol 325mg Tab) 650 mg PO Q4 PRN PRN Reason: Pain, moderate (4-7) Al Hydrox/Mg Hydrox/Simethicone (Maalox Plus 30 Ml) 30 ml PO Q4 PRN PRN Reason: Dyspepsia Amlodipine Besylate (Norvasc) 10 mg PO DAILY [facility] Last Admin: 04/16/17 08:24 Dose: 10 mg Atorvastatin Calcium (Lipitor) 20 mg PO HS [facility] Last Admin: 04/15/17 21:17 Dose: 20 mg Bisacodyl (Dulcolax) 5 mg PO DAILY PRN PRN Reason: Constipation Last Admin: 04/16/17 15:41 Dose: 5 mg Diphenhydramine HCl (Benadryl) 50 mg IM Q6 PRN PRN Reason: Extrapyramidal S/S Unable PO Diphenhydramine HCl (Benadryl) 50 mg PO HS PRN PRN Reason: Sleep Last Admin: 04/13/17 22:08 Dose: 50 mg Haloperidol (Haldol) 5 mg PO Q4 PRN PRN Reason: Agitation Last Admin: 04/15/17 19:36 Dose: 5 mg Haloperidol (Haldol) 5 mg PO BID [facility] Last Admin: 04/16/17 09:19 Dose: Not Given Haloperidol Lactate (Haldol) 5 mg IM Q4 PRN PRN Reason: Agitation, Unable to Take PO Lisinopril (Zestril) 10 mg PO DAILY [facility] Last Admin: 04/16/17 08:24 Dose: 10 mg Lorazepam (Ativan) 2 mg IM Q4 PRN PRN Reason: Anxiety/Agitation,Unable PO Lorazepam (Ativan) 1 mg PO Q4 PRN PRN Reason: Anxiety/Agitation Last Admin: 04/15/17 19:35 Dose: 1 mg Lorazepam (Ativan) 1 mg PO BID [facility] Last Admin: 04/16/17 09:18 Dose: Not Given Magnesium Hydroxide (Milk Of Magnesia) 30 ml PO HS PRN PRN Reason: Constipation Tramadol HCl (Ultram) 50 mg PO TID PRN PRN Reason: Pain, severe (8-10) - Labs Labs: 04/15/17 19:50 04/15/17 19:50 - Additional Findings Additional findings: Constitutional Appears: Non-toxic - ENT Exam ENT Exam: Mucous Membranes Moist - Respiratory Exam Respiratory Exam: Clear to Ausculation Bilateral, NORMAL BREATHING PATTERN - Cardiovascular Exam Cardiovascular Exam: REGULAR RHYTHM, +S1, +S2 - GI/Abdominal Exam GI & Abdominal Exam: Soft, Normal Bowel Sounds. absent: Distended, Guarding, Rigid, Tenderness - Extremities Exam Extremities Exam: Normal Inspection. absent: Calf Tenderness, Pedal Edema - Neurological Exam Neurological Exam: Alert, Awake, Oriented x3 - Skin Skin Exam: Dry, Intact, Normal Color Assessment and Plan - Assessment and Plan (Free Text) Assessment: 66 y/o M with PMHx significant for HLD, Triple Cervical disc herniation, who was admitted in psychiatric unit for mood disorder unspecified and r/o bipolar disorder manic with psychosis. Plan: Hypertension improving, well controlled with PO medications Patient is taking PO antihypertensive Denies any symptoms at this evaluation c/w Lisinopril 10 mg PO daily c/w Amlodipine 10 mg PO daily GFR >60, BUN/Cr :wnl f/u BP Hypokalemia resolved K+ today 3.8 s/p Potassium 40 meq once yesterday Hematuria resolved repeat UA WNL, RBC neg Elevated LFts Asymptomatic stable patient had been f/u with GI as outpatient c/w GI f/u as outpatient HLD c/w home atorvastatin 20 mg PO HS Mood disorder unspecified f/u Head CT r/o bipolar disorder manic with psychosis. management as per psych DVT prophylaxis ambulating <Wolf Saravia - Last Filed: 04/20/17 06:53> Objective - Vital Signs/Intake and Output Vital Signs (last 24 hours): Temp Pulse Resp BP Pulse Ox 97.8 F 67 18 120/78 99 04/16/17 16:36 04/16/17 16:36 04/16/17 16:36 04/16/17 16:36 04/13/17 19:36 - Labs Labs: 04/15/17 19:50 04/15/17 19:50 Attending/Attestation - Attestation I have fully participated in the care of the patient.: Yes I have reviewed all pertinent clinical information, including history, physical exam and plan: Yes
--- NOTE | 2017-04-17 08:47 | PCM.PYCHDC ---
Mental Status Examination - Mental Status Examination Orientation: Person, Place, Situation, Time Memory: Intact Mood: Other (anxious/irritable/expansive) Affect: Broad Speech: Loud, Pressured Attention: WNL Concentration: Poor Association: Loose Fund of Knowledge: WNL Formal Thought Process: Delusions, Paranoia, Loosening of associations, Flight of ideas Description of patient's judgement and insight: poor i/j Psychotic Thoughts and Behaviors: grossly disturbed thoughts Suicidal Ideation: No Current Homicidal Ideation?: No Plan: pt is denying any suicidal or homicidal thoughts/plans or intent Discharge Summary - Discharge Note Reason for Hospitalization: pt was brought in by [facility] as family/friends/md were worried about recent manic/disorganized behaviors and suicidal threats Psychiatric History (includes Medical, Family, Personal Hx): no recent history of treatment, apprently hospitalized in [facility] Laboratory Data: Abnormal Lab Results 04/15/17 04/15/17 19:50 19:50 Hemoglobin A1c 5.3 Hepatitis A IgM Ab Negative Hep Bs Antigen Negative Hep B Core IgM Ab Negative Hepatitis C Antibody Negative Consultations:: List each consultation separately and include: 1. Reason for request. 2. Findings. 3. Follow-up Consultations: serjio souza seeing pt and working on medical clearance. Summary of Hospital Course include:: 1. Description of specific treatment plan utilized for patients during their course of treatmen. 2. Summarize the time- course for resolution of acute symptoms and/or regressed behaviors. 3. Describe issues identified and worked on during hospitalization. 4. Describe medication utilized. 5. Describe medical problems identified and treated. 6. Reassessment of suicide risk Summary of Hospital Course: 66 yo gren[place] male who is denying any previous psychiatric history. pt's son apparently called [facility] as he was concerned with the patient's recent behaviors. apparently pt has been working on a new book and has become quite bizarre and has been making vague suicidal statements. pt has become paranoid and there are reports that patient was reporting hearing voices. he is a poor historian currently. he is intrusive and continues to ask this gag writer and staff for personal information and is yelling that "a mistake was made" and demanding to be discharged immediately. pt becomes loud and agitated. he is able to be verbally redirected by staff. pt speaking to this gag writer in congolese and continues to try and ask questions about this writers ancestors. he becomes tagential and continues to shift from topic to topic. he insists that his 3 month (at times he says 5 month) old daughter is coming from [place] today. he states his son is getting today. he demands to be discharged and has signed a 48 hour notice. hospital course pt was admitted to [facility] and oriented to the unit. he attended treatment team and he was seen by his primary care doctor. he initially was started on risperdal 0.5mg daily which he took. he remained psychotic, manic angry and disruptive/ intrusive with staff and peers. he demanded to leave and was screened by [facility] [place]. risperdal was discontinued and haldol initiated, but pt refused this medication. he was accepted by [facility] [place]. he continued to present and expansive, grandiose, labile and with poor impulse control. he destroyed property on the unit while expressing paranoid thoughts- that his son was outside the unit conspiring with the doctor against him- to the staff. a bed became available at [facility] [place] and he was transfered to this facility. his son and primary care doctor were in contact with members of the treatment team. - Final Diagnosis (DSM 5) Condition upon Discharge: STABLE DSM 5: bipolar disorder, manic with psychosis Disposition: Transfer [facility] Follow-up Treatment Plan: pt will be under the care and assessed by the treatment team at [facility] - Smoking Cessation Smoking Cessation Medication prescribed: No - Antipsychotic Medications Pt discharged on 2 or more routine antipsychotic medications: No
== END 2017-04-17 02:50 | DRG 885 ==
LOC: H.ER 12:52 → H.ERHOLD 19:07 → H.PSYCH 20:50
PROVIDERS: ADMIT Psychiatry & Neurology Psychiatry; ATTEND Psychiatry & Neurology Psychiatry
PROC: GZ51ZZZ Individual Psychotherapy, Behavioral (ICD-10-PCS; 2017-04-13)
PROC: GZHZZZZ Group Psychotherapy (ICD-10-PCS; principal; 2017-04-16)
DX: F31.2 Bipolar disorder, current episode manic severe with psychotic features (principal); R45.851 Suicidal ideations; M50.20 Other cervical disc displacement, unspecified cervical region; E78.5 Hyperlipidemia, unspecified; E78.00 Pure hypercholesterolemia, unspecified; Z79.899 Other long term (current) drug therapy; K29.70 Gastritis, unspecified, without bleeding; R03.0 Elevated blood-pressure reading, without diagnosis of hypertension

== ENCOUNTER 2017-08-20 09:54 | Inpatient (IN) | payer MEDICARE ==
[2017-08-20 09:54] VITALS: BMI 26.6
[2017-08-20 11:46] LABS: BASO % 0.3 % (0.0-2.0); EOS # 0.2 K/uL (0.0-0.7); EOS % 2.3 % (0.0-4.0); HEMOGLOBIN 16.6 g/dL (12.0-18.0); LYMPH # 2.2 K/uL (1.0-4.3); LYMPH % 24.4 % (20.0-40.0); MEAN CELL VOLUME 91.9 fl (80.0-94.0); MEAN CORPUSCULAR HEMOGLOBIN 31.7 pg (27.0-31.0); MEAN CORPUSCULAR HGB CONC 34.5 g/dL (33.0-37.0); MEAN PLATELET VOLUME 7.6 fl (7.2-11.7); MONO # 0.7 K/uL (0.0-0.8); NEUT # 5.8 K/uL (1.8-7.0); NRBC % 0.1 % (0.0-0.0); RBC 5.23 Mil/uL (4.40-5.90); RED CELL DISTRIBUTION WIDTH 12.8 % (11.5-14.5); WHITE BLOOD COUNT 8.9 K/uL (4.8-10.8)
[2017-08-20 12:01] LABS: PARTIAL THROMBOPLASTIN TIME 38.2 Seconds (25.6-37.1); PROTHROMBIN TIME 11.3 Seconds (9.8-13.1)
[2017-08-20 12:03] LABS: ACETAMINOPHEN < 10.0 ug/ml (10.0-30.0); ALB/GLOB RATIO 1.4 (1.0-2.1); ALBUMIN 4.6 g/dL (3.5-5.0); ALT/SGPT 46 U/L (21-72); AST/SGOT 30 U/L (17-59); BLOOD UREA NITROGEN 11 mg/dl (9-20); CALCIUM 9.6 mg/dL (8.4-10.2); GFR AFRICAN-AMERICAN > 60; GFR NON-AFRICAN AMERICAN > 60; LIPASE 100 U/L (23-300); MAGNESIUM 2.2 MG/DL (1.6-2.3); SALICYLATE < 1.0 mg/dl
[2017-08-20 12:14] LABS: B-TYPE NATRIURETIC PEPTIDE 57.3 pg/ml (0-900)
--- NOTE | 2017-08-20 12:15 | ED PDOC ---
HPI: Psych/Substance Abuse Time Seen by Provider: 08/20/17 10:17 Chief Complaint (Nursing): Psychiatric Evaluation History Per: Patient History/Exam Limitations: no limitations Onset/Duration Of Symptoms: Gradual (4 days) Current Symptoms Are (Timing): Still Present Severity: Moderate Associated Symptoms: Depression. denies: Anger, Anxiety, Agitation, Paranoia, Suicidal Thoughts, Suicidal Plan Involuntary Hold By: None Additional History Per: Patient Additional Complaint(s): pt's speech slow, poor eye contact, admits to "feeling depressed, sad and just loss of interest in daily activities". Pt. denies suicidal, denies homicidal ideations. Past Medical History Reviewed: Historical Data, Nursing Documentation, Vital Signs Vital Signs: Last Vital Signs Temp 98 F 08/20/17 10:15 Pulse 75 08/20/17 10:15 Resp 18 08/20/17 10:15 BP 162/102 H 08/20/17 10:15 Pulse Ox 97 08/20/17 10:15 - Medical History PMH: Back Problems, Bipolar Disorder, Depression, Gastritis, Hypercholesterolemia Denies: Chronic Kidney Disease - Family History Family History: States: Unknown Family Hx - Living Arrangements Living Arrangements: With Family - Social History Drugs: Denies - Immunization History Hx Tetanus Toxoid Vaccination: No Hx Influenza Vaccination: No Hx Pneumococcal Vaccination: No - Home Medications Home Medications: Ambulatory Orders Medication Instructions Recorded traMADol [Ultram] 50 mg PO TID PRN 01/16/16 Atorvastatin [Lipitor] 20 mg PO HS 04/13/17 Loratadine [Claritin] 10 mg PO DAILY 04/13/17 - Allergies Allergies/Adverse Reactions: Allergies Allergy/AdvReac Type Severity Reaction Status Date / Time No Known Allergies Allergy Verified 08/20/17 10:15 Review of Systems ROS Statement: Except As Marked, All Systems Reviewed And Found Negative Constitutional: Negative for: Fever, Chills Cardiovascular: Negative for: Chest Pain, Palpitations Respiratory: Negative for: Cough, Shortness of Breath Gastrointestinal: Negative for: Nausea, Vomiting, Abdominal Pain Skin: Negative for: Rash Neurological: Negative for: Weakness, Numbness Physical Exam - Reviewed Nursing Documentation Reviewed: Yes Vital Signs Reviewed: Yes - Physical Exam Appears: Positive for: Well, Uncomfortable Head Exam: Positive for: ATRAUMATIC, NORMAL INSPECTION, NORMOCEPHALIC Eye Exam: Positive for: Normal appearance, EOMI, PERRL Neck: Positive for: Normal, Painless ROM, Supple Cardiovascular/Chest: Positive for: Regular Rate, Rhythm, Chest Non Tender. Negative for: Edema, Gallop, Murmur, Bradycardia, Tachycardia Respiratory: Positive for: Normal Breath Sounds. Negative for: Decreased Breath Sounds, Accessory Muscle Use, Crackles, Rales, Rhonchi, Stridor, Wheezing Gastrointestinal/Abdominal: Positive for: Normal Exam, Bowel Sounds. Negative for: Soft Back: Positive for: Normal Inspection. Negative for: L CVA Tenderness, R CVA Tenderness Extremity: Positive for: Normal ROM. Negative for: Tenderness, Pedal Edema, Calf Tenderness Neurologic/Psych: Positive for: Alert, aoc operations intelligence chief II-XII, Oriented, Mood/Affect (flat) , Gait (steady). Negative for: Motor/Sensory Deficits, Aphasia, Facial Droop - Laboratory Results Result Diagrams: 08/20/17 11:22 08/20/17 11:22 - ECG ECG: Positive for: Interpreted By Me ECG Rhythm: Positive for: Normal QRS, Normal ST Segment, Sinus Rhythm (71). Negative for: ST/T Changes Interpretation Of Abn EKG: no evidence of ischemia O2 Sat by Pulse Oximetry: 97 Pulse Ox Interpretation: Normal - Radiology X-Ray: Interpreted by Me X-Ray Interpretation: No Acute Disease - Progress ED Course And Treament: seen and eval by crisis pt is medically stable for inpt hospital admission. Re-evaluation Time: 13:00 Condition: Improved Disposition - Clinical Impression Clinical Impression: Depression - Patient ED Disposition Is Patient to be Admitted: No Counseled Patient/Family Regarding: Studies Performed, Diagnosis - Disposition Disposition Time: 13:00 Condition: STABLE Forms: [employer] (Surinamese) - Pt Status Changed To: Hospital Disposition Of: Inpatient - Admit Certification Admit to Inpatient:: After my assessment, the patient will require hospitalization for at least two midnights. This is because of the severity of symptoms shown, intensity of services needed, and/or the medical risk in this patient being treated as an outpatient. - POA Present On Arrival: None
[2017-08-20 12:43] LABS: URINE BILIRUBIN NEGATIVE (NEGATIVE); URINE BLOOD NEGATIVE (NEGATIVE); URINE CLARITY CLEAR (Clear); URINE COLOR YELLOW (YELLOW); URINE GLUCOSE (UA) NEG (Normal); URINE LEUKOCYTE ESTERASE NEG Leu/uL (Negative); URINE NITRATE NEGATIVE (NEGATIVE); URINE PROTEIN NEGATIVE (NEGATIVE); URINE UROBILINOGEN 0.2-1.0 mg/dL (0.2-1.0)
[2017-08-20 12:58] LABS: BARBITURATES, UR NEGATIVE (NEGATIVE); BENZODIAZEPINES, UR NEGATIVE (NEGATIVE); OPIATES, UR NEGATIVE (NEGATIVE); PHENCYCLIDINE, UR NEGATIVE (NEGATIVE)
[2017-08-20] MEDS ORDERED: Bismuth Subsalicylate 262 mg/15 ml Sus (240 ml) PO PRN (13:49)
[2017-08-20] MEDS ORDERED: Alum-Mag Hydrox-Simethicone Susp (30 mL) PO PRN (13:49)
[2017-08-20] MEDS ORDERED: Magnesium Hydroxide Susp 30 ml UD PO PRN (13:49)
--- NOTE | 2017-08-20 14:08 | CARD ---
APPROVED REPORT EKG Measurement Heart [id number] <Conclusion> Normal sinus rhythm Normal ECG
[2017-08-20 14:36] VITALS: O2SAT 98
--- NOTE | 2017-08-20 14:46 | RAD ---
PROCEDURE: CHEST RADIOGRAPH, 1 VIEW HISTORY: weak COMPARISON: 04/13/2017 FINDINGS: LUNGS: Clear. PLEURA: No pneumothorax or pleural fluid seen. CARDIOVASCULAR: Normal. OSSEOUS STRUCTURES: No significant abnormalities. VISUALIZED UPPER ABDOMEN: Normal. OTHER FINDINGS: None. IMPRESSION: No active disease.
--- NOTE | 2017-08-20 15:45 | PCM.BM ---
Treatment assets and liabiliti Patient Assests: ADL independent, negotiates basic needs
--- NOTE | 2017-08-20 15:57 | PCM.BM ---
<Lily Burch - Last Filed: 08/20/17 15:55> Treatment Plan Problems - Problems identified on initial assessmt depression Date Initiated: 08/20/17 Time Initiated: 15:56 Assessment reference: HP, NA Status: Active Treatment assets and liabiliti Patient Assests: ADL independent, negotiates basic needs, financial stabiity, cognitively intact Patient Liabilities: live alone, physical pain, poor support system, dietary restrictions, medical problems - Milieu Protocol Maintain good personal hygiene: daily Encourage regular showers, daily Remind patient to perform daily oral care, daily Assist patient to perform ADL's Conduct patient checks and document Observation sheet: Q15 minutes Maintain personal safety: every shift Educate patient to report safety concerns to staff, every shift Monitor environment for contraband/sharps Medication safety: Monitor for expected outcome, potential side effects: every shift, Assess barriers to learning: every shift, Assess readiness for medication education: every shift <SukhdeepRia garcia - Last Filed: 08/21/17 09:31> - Diagnosis (1) Bipolar disorder Status: Acute Interventions: Medication Management, Individual and group therapy, Psychoeducation 08/21/17 09:31 <Renea Upton - Last Filed: 08/21/17 15:08> Family Contact Family involvement: Patient does not wish Family/SO involvement - Outside Agency Dr. Caleb Gonzales MD Care involvment: Not involved Agency contact number: [phone] Discharge/Continuing Care - Education Needs Education Needs: Patient Medication, Patient Diagnosis/Disease Process, Patient Coping Skills, Patient Community resources, Patient Activities of Daily Living, Patient Personal Hygiene/Grooming, Patient Aftercare Safety Plan - Discharge Discharge Criteria: Tolerates medication w/o severe side effects, Normal sleep pattern, Ability to care for self, Reduction of target symptoms Discharge to:: Home, With Family - Additional Comments 08/21/17 15:04 Pt seen and discussed in team meeting. Reason for admission reviewed and discussed. Pt reported he presented tot he ED with c/o restless legs and not for depression. Pt denied active SI and HI. Pt denied AVH. Pt denied any paranoia. Pt denied any thoughts of hurting himself or his new born baby. Pt's medications reviewed and discussed. Pt discharged back home today. Pt provided with after care appointment to [facility]. - Treatment Team Participation Discussed with Family/SO: No Was Patient/Family/SO present at Treatment Team Meeting: Yes
[2017-08-21 06:03] VITALS: BP 126/84; PULSE 66; RESP 19; TEMP 97.7
--- NOTE | 2017-08-21 10:03 | CP.PCM.CON ---
<Reji Camacho - Last Filed: 08/21/17 16:11> History of Present Illness - History of Present Illness History of Present Illness: 66 y/o M with PMHx significant for HLD, Triple Cervical disc herniation, who was admitted in psychiatric unit for major depression. Patient admitted to feel depression, lost his interest in daily activities and reports that he has restless legs and his Dr sent him to the hospital. Patient denies insomnia, visual hallucination, auditory hallucination, homicidal or suicidal ideation, fever, n,v, abd pain. During round today patient reports occs dysuria but not always and deneis h/o UTI, urethral discharge. Pt has good eye contact, normal mood today and denies anxiety or depression. Patient denies any other medical condition except major depression PPHx: H/o diagnosis of Bipolar Disorder, h/o admission to [facility] from - [place] [facility] [place]. History of treatment with Abilify. SHx: Lives w/ and 7 month old baby; from [place], denies acute drug/alcohol use. Review of Systems - Cardiovascular Cardiovascular: As Per HPI - Respiratory Respiratory: As Per HPI - Gastrointestinal Gastrointestinal: As Per HPI Past Patient History - Past Medical History & Family History Past Medical History?: Yes - Past Social History Drugs: Denies - CARDIAC Hx Cardiac Disorders: Yes (Hypercholesterol) Hx Hypertension: No - PULMONARY Hx Tuberculosis: No - NEUROLOGICAL HX Cerebrovascular Accident: No Hx Seizures: No - HEENT Hx HEENT Problems: No - RENAL Hx Chronic Kidney Disease: No - ENDOCRINE/METABOLIC Hx Endocrine Disorders: No - HEMATOLOGICAL/ONCOLOGICAL Hx Cancer: No Hx Human Immunodeficiency Virus (HIV): No - INTEGUMENTARY Hx Dermatological Problems: No - MUSCULOSKELETAL/RHEUMATOLOGICAL Hx Musculoskeletal Disorders: Yes Hx Falls: No - GASTROINTESTINAL Hx Gastritis: Yes - GENITOURINARY/GYNECOLOGICAL Hx Sexually Transmitted Disorders: No - PSYCHIATRIC Hx Depression: Yes Hx Substance Use: No - SURGICAL HISTORY Hx Surgeries: No - ANESTHESIA Hx Anesthesia: No Hx Anesthesia Reactions: No Hx Malignant Hyperthermia: No Meds Home Medications: Home Medication List Medication Instructions Recorded Confirmed Type ARIPiprazole [Abilify] 10 mg PO DAILY #30 tab 08/21/17 Rx Allergies/Adverse Reactions: Allergies Allergy/AdvReac Type Severity Reaction Status Date / Time No Known Allergies Allergy Verified 08/20/17 10:15 - Medications Medications: Current Medications Acetaminophen (Tylenol 325mg Tab) 650 mg PO Q4 PRN PRN Reason: Pain, moderate (4-7) Al Hydrox/Mg Hydrox/Simethicone (Maalox Plus 30 Ml) 30 ml PO Q4 PRN PRN Reason: Dyspepsia Aripiprazole (Abilify) 10 mg PO DAILY ANANDA Bismuth Subsalicylate (Pepto-Bismol) 524 mg PO Q4 PRN PRN Reason: Diarrhea Haloperidol (Haldol) 5 mg PO Q8 PRN PRN Reason: Agitation Haloperidol Lactate (Haldol) 5 mg IM Q8 PRN PRN Reason: Agitation Lorazepam (Ativan) 0.5 mg PO HS PRN PRN Reason: Insomnia Stop: 09/03/17 13:50 Last Admin: 08/20/17 21:19 Dose: 0.5 mg Lorazepam (Ativan) 0.5 mg PO Q6 PRN PRN Reason: Anixety/Agitation Stop: 09/03/17 13:50 Lorazepam (Ativan) 1 mg IM Q8 PRN PRN Reason: Agitation Magnesium Hydroxide (Milk Of Magnesia) 30 ml PO HS PRN PRN Reason: Constipation Physical Exam - Constitutional Appears: Non-toxic, No Acute Distress - Head Exam Head Exam: ATRAUMATIC, NORMOCEPHALIC - Eye Exam Eye Exam: Normal appearance - ENT Exam ENT Exam: Normal Exam - Neck Exam Neck exam: Positive for: Normal Inspection - Respiratory Exam Respiratory Exam: Clear to Auscultation Bilateral. absent: Rales, Wheezes, Stridor - Cardiovascular Exam Cardiovascular Exam: REGULAR RHYTHM, +S1, +S2 - GI/Abdominal Exam GI & Abdominal Exam: Normal Bowel Sounds, Soft. absent: Tenderness - Extremities Exam Extremities exam: Positive for: normal inspection. Negative for: pedal edema - Neurological Exam Neurological exam: Alert, Oriented x3 - Psychiatric Exam Psychiatric exam: Normal Mood - Skin Skin Exam: Intact Results - Vital Signs Recent Vital Signs: Last Vital Signs Temp 97.7 F 08/21/17 06:02 Pulse 66 08/21/17 06:02 Resp 19 08/21/17 06:02 BP 126/84 08/21/17 06:02 Pulse Ox 98 08/20/17 13:30 - Labs Result Diagrams: 08/20/17 11:22 08/20/17 11:22 Labs: Laboratory Results - last 24 hr 08/20/17 08/20/17 08/20/17 10:30 11:22 11:22 WBC 8.9 RBC 5.23 Hgb 16.6 Hct 48.0 MCV 91.9 MCH 31.7 H MCHC 34.5 RDW 12.8 Plt Count 204 MPV 7.6 Neut % (Auto) 65.0 Lymph % (Auto) 24.4 [place] % (Auto) 8.0 Eos % (Auto) 2.3 Baso % (Auto) 0.3 Neut # 5.8 Lymph # 2.2 [place] # 0.7 Eos # 0.2 Baso # 0.0 PT INR APTT D-Dimer, Quantitative Sodium 141 Potassium 3.8 Chloride 101 Carbon Dioxide 28 Anion Gap 16 BUN 11 Creatinine 0.7 L Est GFR ( Amer) > 60 Est GFR (Non-Af Amer) > 60 POC Glucose (mg/dL) 106 Random Glucose 111 H Calcium 9.6 Magnesium 2.2 Total Bilirubin 0.7 AST 30 ALT 46 Alkaline Phosphatase 77 Troponin I < 0.0120 NT-Pro-B Natriuret Pep 57.3 Total Protein 8.0 Albumin 4.6 Globulin 3.4 Albumin/Globulin Ratio 1.4 Lipase 100 Urine Color Urine Clarity Urine pH Ur Specific [place] Urine Protein Urine Glucose (UA) Urine Ketones Urine Blood Urine Nitrate Urine Bilirubin Urine Urobilinogen Ur Leukocyte Esterase Urine RBC (Auto) Urine Microscopic WBC Salicylates Urine Opiates Screen Urine Methadone Screen Acetaminophen Ur Barbiturates Screen Ur Phencyclidine Scrn Ur Amphetamines Screen U Benzodiazepines Scrn U Oth Cocaine Metabols U Cannabinoids Screen Alcohol, Quantitative < 10 08/20/17 08/20/17 08/20/17 11:22 11:22 12:30 WBC RBC Hgb Hct MCV MCH MCHC RDW Plt Count MPV Neut % (Auto) Lymph % (Auto) [place] % (Auto) Eos % (Auto) Baso % (Auto) Neut # Lymph # [place] # Eos # Baso # PT 11.3 INR 1.0 APTT 38.2 H D-Dimer, Quantitative 106 Sodium Potassium Chloride Carbon Dioxide Anion Gap BUN Creatinine Est GFR ( Amer) Est GFR (Non-Af Amer) POC Glucose (mg/dL) Random Glucose Calcium Magnesium Total Bilirubin AST ALT Alkaline Phosphatase Troponin I NT-Pro-B Natriuret Pep Total Protein Albumin Globulin Albumin/Globulin Ratio Lipase Urine Color Yellow Urine Clarity Clear Urine pH 7.0 Ur Specific [place] 1.012 Urine Protein Negative Urine Glucose (UA) Neg Urine Ketones Negative Urine Blood Negative Urine Nitrate Negative Urine Bilirubin Negative Urine Urobilinogen 0.2-1.0 Ur Leukocyte Esterase Neg Urine RBC (Auto) 2 Urine Microscopic WBC < 1 Salicylates < 1.0 Urine Opiates Screen Urine Methadone Screen Acetaminophen < 10.0 L Ur Barbiturates Screen Ur Phencyclidine Scrn Ur Amphetamines Screen U Benzodiazepines Scrn U Oth Cocaine Metabols U Cannabinoids Screen Alcohol, Quantitative 08/20/17 12:30 WBC RBC Hgb Hct MCV MCH MCHC RDW Plt Count MPV Neut % (Auto) Lymph % (Auto) [place] % (Auto) Eos % (Auto) Baso % (Auto) Neut # Lymph # [place] # Eos # Baso # PT INR APTT D-Dimer, Quantitative Sodium Potassium Chloride Carbon Dioxide Anion Gap BUN Creatinine Est GFR ( Amer) Est GFR (Non-Af Amer) POC Glucose (mg/dL) Random Glucose Calcium Magnesium Total Bilirubin AST ALT Alkaline Phosphatase Troponin I NT-Pro-B Natriuret Pep Total Protein Albumin Globulin Albumin/Globulin Ratio Lipase Urine Color Urine Clarity Urine pH Ur Specific [place] Urine Protein Urine Glucose (UA) Urine Ketones Urine Blood Urine Nitrate Urine Bilirubin Urine Urobilinogen Ur Leukocyte Esterase Urine RBC (Auto) Urine Microscopic WBC Salicylates Urine Opiates Screen Negative Urine Methadone Screen Negative Acetaminophen Ur Barbiturates Screen Negative Ur Phencyclidine Scrn Negative Ur Amphetamines Screen Negative U Benzodiazepines Scrn Negative U Oth Cocaine Metabols Negative U Cannabinoids Screen Negative Alcohol, Quantitative Assessment & Plan - Assessment and Plan (Free Text) Plan: 66 y/o M with PMHx significant for HLD, Triple Cervical disc herniation, who was admitted in psychiatric unit for major depression Assesment/Plan 1) Major depression -controlled -On Psyq unit -Abilify 10 mg PO Daily 2)Hypertension -No Hx/o HTN -asymptomatic -Amlodipine 5 mg PO PRN BP>160 3)HLD c/w home atorvastatin 20 mg PO HS 4) DVT Prophylaxis -Ambulating <Wolf Saravia - Last Filed: 08/24/17 06:47> Results - Vital Signs Recent Vital Signs: Last Vital Signs Temp 97.7 F 08/21/17 06:02 Pulse 66 08/21/17 06:02 Resp 19 08/21/17 06:02 BP 126/84 08/21/17 06:02 Pulse Ox 98 08/20/17 13:30 - Labs Result Diagrams: 08/20/17 11:22 08/20/17 11:22 Attending/Attestation - Attestation I have personally seen and examined this patient.: Yes I have fully participated in the care of the patient.: Yes I have reviewed all pertinent clinical information: Yes
--- NOTE | 2017-08-21 12:55 | PCM.PSYCH ---
Initial Psychiatric Evaluation - Initial Psychiatric Evaluation Type of Admission: Voluntary Legal Status: Capacity Chief Complaint (in patient's own words): "I have restless leg syndrome and have not slept well because I was traveling from [place]." Patient's Reaction to Hospitalization: HPI: 67 yo male with presented with acute complaints of restless legs and poor sleep in the context of traveling from [place]. He also reports a history of anxiety and depression and as per chart, has been diagnosed with Bipolar in the past. He reports that he would like to restart Abilify because he felt that medication was helpful for his mood. He denies acutely feeling depressed or anxious. He denies acute karan and does not have pressured speech. He is calm , cooperative, w/ good eye contact and no behavioral disturbances. No SI/HI. Patient is requesting to be discharged from the hospital at this time and does not meet criteria for involuntary commitment. PPHx: H/o diagnosis of Bipolar Disorder, h/o admission to [facility] from - and [place] [facility] [place]. History of treatment with Abilify. SHx: Lives w/ and 7 month old baby; from [place], denies acute drug/alcohol use. ALL: NKDA Past Psychiatric History - Past Psychiatric History Previous Treatment History: Inpatient Pertinent Medical Hx (Current Medical&Sleep Prob, Allergies): Allergies Allergy/AdvReac Type Severity Reaction Status Date / Time No Known Allergies Allergy Verified 08/20/17 10:15 traMADol [Ultram] 50 mg PO TID PRN 01/16/16 Atorvastatin [Lipitor] 20 mg PO HS 04/13/17 Pregabalin [Lyrica] 100 mg PO HS 08/20/17 ARIPiprazole [Abilify] 10 mg PO DAILY #30 tab 08/21/17 Review of Systems - Psychiatric Psychiatric: As Per HPI, Abnormal Sleep Pattern, Anxiety, Depression, Other ( Restlessness) Mental Status Examination - Personal Presentation Personal Presentation: Looks stated age - Affect Affect: Broad - Motor Activity Motor Activity: Calm - Reliability in Providing Information Reliability in Providing Information: Good - Speech Speech: Organized - Mood Mood: Neutral - Formal Thought Process Formal Thought Process: No Impairment - Hallucinations/Delusions Additional comments: No AH/VH/paranoia/delusions - Obsessions/Compulsions Obsessions: No Compulsions: No - Cognitive Functions Orientation: Person, Place, Situation, Time Sensorium: Alert Attention/Concentration: Attentive Estimate of Intelligence: Average Judgement: Intact, as evidence by: Good judgement Memory: Recent intact, as evidence by: Ability to recall events of the day, Remote intact, as evidenced by: Abilit to recall sig. life events, Remote intact , as evidenced by: Ability to recall historical events - Strength & Assets Inventory Strength & Assets Inventory: Cooperative DSM 5 DX - DSM 5 DSM 5 Diagnosis: Bipolar Disorder, in remission - Recommended/Plan of Treatment Treatment Recommendations and Plan of Treatment: -Restart Abilify 10 mg PO Daily -Discharge to home as the patient is requesting discharge and dose not meet criteria for involuntary commitment at this time -Medicine consult Projected ELOS: 1 day Prognosis: Good Discharge Plan and Discharge Criteria: Discharge today as the patient is psychiatrically stable - Smoking Cessation Smoking Cessation Initiated: No Reason for not providing: Not indicated
--- NOTE | 2017-08-21 13:00 | PCM.PYCHDC ---
Mental Status Examination - Mental Status Examination Orientation: Person, Place, Situation, Time Memory: Intact Mood: Neutral Affect: Broad Speech: Appropriate Attention: WNL Concentration: WNL Association: WNL Fund of Knowledge: WNL Formal Thought Process: No Impairment Description of patient's judgement and insight: Good I/J Psychotic Thoughts and Behaviors: NO AH/VH/paranoia/delusions Suicidal Ideation: No Current Homicidal Ideation?: No Discharge Summary - Discharge Note Reason for Hospitalization: HPI: 67 yo male with presented with acute complaints of restless legs and poor sleep in the context of traveling from [place]. He also reports a history of anxiety and depression and as per chart, has been diagnosed with Bipolar in the past. He reports that he would like to restart Abilify because he felt that medication was helpful for his mood. He denies acutely feeling depressed or anxious. He denies acute karan and does not have pressured speech. He is calm , cooperative, w/ good eye contact and no behavioral disturbances. No SI/HI. Patient is requesting to be discharged from the hospital at this time and does not meet criteria for involuntary commitment. PPHx: H/o diagnosis of Bipolar Disorder, h/o admission to [facility] from - and then transfer [place] [facility] [place] involuntary commitment. History of treatment with Abilify. SHx: Lives w/ and 7 month old baby; from [place], denies acute drug/alcohol use. ALL: NKDA Laboratory Data: Abnormal Lab Results 08/20/17 08/20/17 11:22 12:30 Sodium 141 Potassium 3.8 Chloride 101 Carbon Dioxide 28 Anion Gap 16 BUN 11 Creatinine 0.7 L Est GFR ( Amer) > 60 Est GFR (Non-Af Amer) > 60 Random Glucose 111 H Calcium 9.6 Magnesium 2.2 Total Bilirubin 0.7 AST 30 ALT 46 Alkaline Phosphatase 77 Troponin I < 0.0120 NT-Pro-B Natriuret Pep 57.3 Total Protein 8.0 Albumin 4.6 Globulin 3.4 Albumin/Globulin Ratio 1.4 Lipase 100 Urine Opiates Screen Negative Urine Methadone Screen Negative Ur Barbiturates Screen Negative Ur Phencyclidine Scrn Negative Ur Amphetamines Screen Negative U Benzodiazepines Scrn Negative U Oth Cocaine Metabols Negative U Cannabinoids Screen Negative Alcohol, Quantitative < 10 Consultations:: List each consultation separately and include: 1. Reason for request. 2. Findings. 3. Follow-up Consultations: Medicine consult Summary of Hospital Course include:: 1. Description of specific treatment plan utilized for patients during their course of treatmen. 2. Summarize the time- course for resolution of acute symptoms and/or regressed behaviors. 3. Describe issues identified and worked on during hospitalization. 4. Describe medication utilized. 5. Describe medical problems identified and treated. 6. Reassessment of suicide risk Summary of Hospital Course: Patient was admitted to the psychiatry. He was restarted on Abilify 10 mg PO Daily. He requested discharge and he does not meet criteria for involuntary admission. Patient to follow-up outpatient psychiatrist upon discharge. - Diagnosis (1) Bipolar disorder Status: Resolved - Final Diagnosis (DSM 5) Condition upon Discharge: FAIR DSM 5: Bipolar II Disorder Disposition: HOME/ ROUTINE Follow-up Treatment Plan: -Restart Abilify 10 mg PO Daily -Discharge to home as the patient is requesting discharge and dose not meet criteria for involuntary commitment at this time -Medicine consult Prescriptions/Medication Reconciliation: ARIPiprazole [Abilify] 10 mg PO DAILY #30 tab - Smoking Cessation Smoking Cessation Medication prescribed: No Reason for not providing: Not indicated - Antipsychotic Medications Pt discharged on 2 or more routine antipsychotic medications: No
== END 2017-08-21 11:15 | disposition home or self-care (01) | DRG 885 ==
LOC: H.ER 09:54 → H.ERHOLD 13:17 → H.STEP 15:01
PROVIDERS: ADMIT Psychiatry & Neurology Psychiatry; ATTEND Psychiatry & Neurology Psychiatry
PROC: GZ51ZZZ Individual Psychotherapy, Behavioral (ICD-10-PCS; principal; 2017-08-20)
DX: F31.81 Bipolar II disorder (principal); M50.20 Other cervical disc displacement, unspecified cervical region; E78.5 Hyperlipidemia, unspecified; F41.9 Anxiety disorder, unspecified; G25.81 Restless legs syndrome; Z79.899 Other long term (current) drug therapy; K29.70 Gastritis, unspecified, without bleeding; E78.00 Pure hypercholesterolemia, unspecified; F31.70 Bipolar disorder, currently in remission, most recent episode unspecified